=== PATIENT | female | born 1990 | race Two or more races ===

== ENCOUNTER 2018-01-16 21:36 | Emergency (ER) | payer BC ==
[~2018-01-16] VITALS: Ht 154.9 cm; Wt 83.0 kg
[2018-01-16] MEDS ORDERED: NKM (21:44)
[2018-01-16 21:50] VITALS: BP 106/71
--- NOTE | 2018-01-16 21:54 | Emergency Room Report ---
History of Present Illness General Chief Complaint: Abdominal Pain Source: Patient Present Illness HPI This is a 27-year-old female who is 2, para 1 who presents with abdominal pain and nausea and vomiting. Onset for the last 5-6 days. She went to an outside hospital over the weekend and was told that she has gastritis. Symptom improved when she got home but came back and again. Pain is diffuse in nature localized to her upper quadrant area. Radiate to the back. She does have nausea vomiting. No diarrhea. Nothing made it better. Nothing made it worse. Pain is 8 out of 10. Vomiting is nonbloody and none bilious. No vaginal bleeding. She had an ultrasound done about a week and half ago confirming IUP with a heartbeat. She is O+ blood type. Allergies: Coded Allergies: No Known Allergies (Unverified , 01/16/18) Patient History Past Medical History: see triage record, old chart reviewed Past Surgical History: other Pertinent Family History: none Social History: Denies: smoking Last Menstrual Period: 10/2017 Now: Yes - 7 weeks : 2 Para: 1 Immunizations: other Reviewed Nursing Documentation: PMH: Agreed; PSxH: Agreed Nursing Documentation-PMH Past Medical History: No History, Except For Hx Gastrointestinal Problems: Yes - gastritis Review of Systems Eye: Denies: eye pain, blurred vision ENT: Denies: ear pain, nose congestion, throat swelling Respiratory: Denies: cough, shortness of breath Cardiovascular: Denies: chest pain, palpitations Gastrointestinal: Reports: abdominal pain, nausea, vomiting; Denies: diarrhea Musculoskeletal: Denies: back pain, joint pain Skin: Denies: rash Neurological: Denies: headache, numbness Endocrine: Denies: increased thirst, increased urine Hematologic/Lymphatic: Denies: easy bruising All Other Systems: negative except mentioned in HPI Physical Exam Vital Signs Date Time Temp Pulse Resp B/P (MAP) Pulse Ox O2 Delivery O2 Flow Rate FiO2 01/16/18 21:37 98.0 86 16 128/80 96 Room Air 98.1 Sp02 EP Interpretation: reviewed, normal General Appearance: well appearing, no apparent distress, alert Head: normocephalic, atraumatic Eyes: bilateral eye PERRL, bilateral eye EOMI ENT: hearing grossly normal, normal pharynx Neck: full range of motion, supple, no meningismus Respiratory: chest non-tender, lungs clear, normal breath sounds Cardiovascular #1: regular rate, rhythm, no murmur Gastrointestinal: no mass, no organomegaly, no bruit, non-distended, abnormal bowel sounds - Hyperactive, tenderness - Right upper quadrant Musculoskeletal: back normal, gait/station normal, normal range of motion Psychiatric: mood/affect normal Skin: warm/dry Medical Decision Making Diagnostic Impression: Primary Impression: Cholelithiasis Qualified Codes: K80.20 - Calculus of gallbladder without cholecystitis without obstruction Additional Impression: UTI in Qualified Codes: O23.41 - Unspecified infection of urinary tract in , first trimester ER Course Is a 27-year-old female present with abdominal pain in the upper quadrant. My bedside ultrasound showed a small gallstone. No Loyd sign. Common bile duct normal. I also saw and IUP that is approximately 8 weeks by my estimation. Good heartbeat. Patient felt better now. No evidence of infection or obstruction. She was given Keflex prescription few days ago but never filled it. Rocephin given here. Lab Results Impression labs unremarkable Last Vital Signs Date Time Temp Pulse Resp B/P (MAP) Pulse Ox O2 Delivery O2 Flow Rate FiO2 01/16/18 21:37 98.0 86 16 128/80 96 Room Air 98.1 Status: improved Disposition: HOME, SELF-CARE Condition: Stable Scripts Hydrocodone/Acetaminophen 5-325* (HYDROCODONE/ACETAMINOPHEN 5-325*) 1 Each Tablet 1 TAB ORAL Q6H PRN for For Pain, #20 TAB 0 Refills Prov: LUH VANCE M.D. 01/16/18 Additional Instructions: Take your Keflex. Follow-up with your doctor in 7 days. Return if symptom worsen. LUH VANCE M.D. January 16, 2018 21:54
[2018-01-16] MEDS ORDERED: Morphine Sulfate 4mg/ml Inj IVP ONE (22:00)
[2018-01-16 22:42] LABS: BASOPHILS % (AUTO) 0.8 % (0.0-2.0); EOSINOPHILS % (AUTO) 0.7 % (0.0-3.0); HEMATOCRIT 40.9 % (37.0-47.0); HEMOGLOBIN 13.8 G/DL (12.0-16.0); LYMPHOCYTES % (AUTO) 28.5 % (20.0-45.0); MEAN CORPUSCULAR VOLUME 86 FL (80-99); MONOCYTES % (AUTO) 4.4 % (1.0-10.0); NEUTROPHILS % (AUTO) 65.6 % (45.0-75.0); PLATELET COUNT 279 K/UL (150-450); RED BLOOD COUNT 4.73 M/UL (4.20-5.40); RED CELL DISTRIBUTION WIDTH 11.5 % (11.6-14.8)
[2018-01-16 22:57] LABS: APPEARANCE,URINE SLIGHTLY CLOUDY; BILIRUBIN, URINE NEGATIVE (NEGATIVE); COLOR,URINE PALE YELLOW; GLUCOSE, URINE (UA) NEGATIVE (NEGATIVE); KETONES,URINE NEGATIVE (NEGATIVE); LEUKOCYTE ESTERASE ,URINE 3+ (NEGATIVE); NITRITE,URINE NEGATIVE (NEGATIVE); PH,URINE 7 (4.5-8.0); PROTEIN,URINE NEGATIVE (NEGATIVE); UROBILINOGEN,URINE NORMAL MG/DL (0.0-1.0)
[2018-01-16 23:05] LABS: ANION GAP 8 mmol/L (5-15); BLOOD UREA NITROGEN 9 mg/dL (7-18); CALCIUM 9.3 MG/DL (8.5-10.1); CARBON DIOXIDE 28 MMOL/L (21-32); CHLORIDE 102 MMOL/L (98-107); CREATININE 0.8 MG/DL (0.55-1.30); POTASSIUM 3.6 MMOL/L (3.5-5.1); SODIUM 137 MMOL/L (136-145)
[2018-01-16 23:09] LABS: ALANINE AMINOTRANSFERASE 18 U/L (12-78); ALBUMIN 3.1 G/DL (3.4-5.0); ALBUMIN/GLOBULIN RATIO 0.7 (1.0-2.7); ALKALINE PHOSPHATASE 83 U/L (46-116); ASPARTATE AMINO TRANSFERASE 14 U/L (15-37); BILIRUBIN,TOTAL 0.2 MG/DL (0.2-1.0)
[2018-01-16] MEDS ORDERED: cefTRIAXone 1 GM in NS 55 ML IVPB ONE (23:15)
[2018-01-16] MEDS ORDERED: HYDROCODON-ACE1 EA15 ORAL (23:19)
[2018-01-16 23:50] VITALS: BP 119/77
== END 2018-01-16 23:55 | disposition home or self-care (01) ==
LOC: EMR 21:58
DX: O99.611 Diseases of the digestive system complicating pregnancy, first trimester (principal); K80.20 Calculus of gallbladder without cholecystitis without obstruction; O23.41 Unspecified infection of urinary tract in pregnancy, first trimester; Z3A.01 Less than 8 weeks gestation of pregnancy
CPT/HCPCS: 36415; 80053; 81003; 83690; 85025; 87086; 96374; 96375; 99283; J0696; J2270; J2405

== ENCOUNTER 2018-04-08 22:04 | Emergency (ER) | payer BC ==
[~2018-04-08] VITALS: Ht 157.5 cm; Wt 83.9 kg
[~2018-04-08 22:04] MED LIST: HYDROCODON-ACE1 EA15 ORAL; NKM
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
[2018-04-08] MEDS ORDERED: CEPHALEXIN500 MG ORAL (22:59)
[2018-04-08] MEDS ORDERED: IBUPROFEN600 MG ORAL (22:59)
[2018-04-08] MEDS ORDERED: Tetanus/Diptheria/Pertussis Vaccine 0.5ml Syr IM ONE (23:00)
[2018-04-08 23:22] VITALS: BP 110/68
== END 2018-04-08 23:22 | disposition home or self-care (01) ==
LOC: EMR 22:38
DX: S81.811A Laceration without foreign body, right lower leg, initial encounter (principal); X99.9XXA Assault by unspecified sharp object, initial encounter; Y93.9 Activity, unspecified; Y92.9 Unspecified place or not applicable; O26.90 Pregnancy related conditions, unspecified, unspecified trimester; Z3A.00 Weeks of gestation of pregnancy not specified
CPT/HCPCS: 90471; 90715; 99283